=== PATIENT | male | born 1955 | race Caucasian/White ===

== ENCOUNTER 2017-11-19 03:47 | Emergency (ER) | payer BC, OTHER ==
[2017-11-19] MEDS ORDERED: Lidocaine 2% Jelly 10 ML Urojet MUCMEM ONE (03:50)
--- NOTE | 2017-11-19 04:00 | EDM.PDOC ---
ED HPI GENERAL MEDICAL PROBLEM - General Stated Complaint: CAN'T URINATE Time Seen by Provider: 11/19/17 03:50 Source of Information: Reports: Patient History Limitations: Reports: No Limitations - History of Present Illness INITIAL COMMENTS - FREE TEXT/NARRATIVE: 62-year-old male with acute urinary retention for the last 4-5 hours. He is very uncomfortable. He has known prostatic hypertrophy but has never had complete urinary obstruction before with retention. No fevers or chills. Patient usually takes Flomax and Cialis and today forgot to take his medications. Onset: Gradual (Over the past several hours) Severity: Severe Associated Symptoms: Reports: No Other Symptoms Bladder Pain Score (Numeric/FACES): 10 - Related Data Allergies Allergy/AdvReac Type Severity Reaction Status Date / Time codeine Allergy Depression Verified 11/19/17 04:21 naproxen [From Naprosyn] Allergy Stomach Verified 11/19/17 04:21 Ache Home Meds: Home Meds Doxycycline Hyclate 1 mg PO DAILY 11/19/17 [History] Fluticasone Propionate [Flonase] 1 spray TOP DAILY 11/19/17 [History] Glucosamine [Glucosamine Sulfate] 500 mg PO DAILY 11/19/17 [History] Ketotifen Fumarate [Alaway] 1 drop TOP DAILY 11/19/17 [History] Montelukast [Singulair] 10 mg PO DAILY 11/19/17 [History] Tadalafil [Cialis] 1 tab PO DAILY 11/19/17 [History] Tamsulosin [Tamsulosin 24 Hr] 0.4 mg PO DAILY 11/19/17 [History] cycloSPORINE [Restasis] 1 drop TOP DAILY 11/19/17 [History] ED ROS GENERAL - Review of Systems Review Of Systems: See Below Constitutional: Denies: Fever, Chills Cardiovascular: Denies: Chest Pain GI/Abdominal: Reports: Abdominal Pain. Denies: Nausea, Vomiting : Reports: Urgency ED EXAM, RENAL/ - Physical Exam Exam: See Below Exam Limited By: No Limitations General Appearance: Alert, Moderate Distress Respiratory/Chest: No Respiratory Distress GI/Abdominal: Tender (Very tender over the suprapubic area with firm bladder) (Male) Exam: Suprapubic Fullness Neurological: Alert, Oriented Psychiatric: Anxious Skin Exam: Warm, Dry Course - Vital Signs Last Recorded V/S: Last Vital Signs Temp 96 F 11/19/17 04:07 Pulse 103 H 11/19/17 04:07 Resp 16 11/19/17 04:07 BP 115/74 11/19/17 04:07 Pulse Ox 96 11/19/17 04:07 - Orders/Labs/Meds Meds: Medications Discontinued Medications Generic Name Dose Route Start Last Admin Trade Name Faye PRN Reason Stop Dose Admin Lidocaine HCl 10 ml 11/19/17 03:50 11/19/17 04:32 Xylocaine 2% Jelly MUCMEM 11/19/17 03:51 10 ml ONETIME ONE Administration - Re-Assessments/Exams Free Text/Narrative Re-Assessment/Exam: 11/19/17 04:00 A Proctor was placed. Symptoms were resolved. 11/19/17 04:33 A total of 1300 mL of clear urine was released. Patient wanted to try without the Proctor catheter, he took his medications at 1 AM. He'll return if symptoms recur. Departure - Departure Time of Disposition: 04:47 Disposition: Home, Self-Care 01 Condition: Good Clinical Impression: Acute urinary retention - Discharge Information Instructions: Acute Urinary Retention, Male Referrals: PCP,None [Primary Care Provider] - Forms: ED Department Discharge Care Plan Goals: Continue your regular medications and urinate when he have the urge. Return to the emergency room if you redevelops obstruction.
== END 2017-11-19 04:47 | disposition home or self-care (01) ==
LOC: JP.ED 03:47
DX: R33.9 Retention of urine, unspecified (principal); Z88.5 Allergy status to narcotic agent
CPT/HCPCS: 51702; 99283-25